=== PATIENT | male | born 1990 | race African-American/Black ===

== ENCOUNTER 2020-09-21 08:11 | Emergency (ER) | payer OTHER ==
[~2020-09-21] VITALS: Ht 172.7 cm; Wt 65.8 kg
[2020-09-21 09:18] LABS: HEMATOCRIT 45.4 % (42.0-52.0); HEMOGLOBIN 14.9 gm/dL (14.0-18.0); MCH 28.6 pg (26.0-34.0); MCHC 32.9 g/dL (28.0-37.0); MCV 86.9 fL (80.0-100.0); RBC 5.22 mil/uL (4.50-6.00); RDW-CV 13.4 % (10.5-14.5); WBC 7.6 thou/uL (4.0-11.0)
[2020-09-21 09:23] LABS: CREATININE 1.3 mg/dL (0.6-1.3)
[2020-09-21 09:26] LABS: ALCOHOL 175 mg/dL (<10); SALICYLATE < 2.8 mg/dL (2.8-20.0)
[2020-09-21 09:27] LABS: ACETAMINOPHEN < 2 ug/mL (10-30); ALBUMIN 3.8 g/dL (3.4-5.0); TOTAL BILIRUBIN 0.9 mg/dL (<0.1-1.0); TOTAL PROTEIN 7.4 g/dL (6.4-8.2)
[2020-09-21 09:34] LABS: URINE BILIRUBIN NEGATIVE (Negative); URINE BLOOD TRACE (Negative); URINE CLARITY CLEAR; URINE COLOR YELLOW; URINE GLUCOSE-RANDOM NEGATIVE (Negative); URINE KETONES 1+ (Negative); URINE LEUKOCYTES NEGATIVE (Negative); URINE NITRITE NEGATIVE (Negative); URINE PROTEIN NEGATIVE (Negative); URINE SPECIFIC GRAVITY >= 1.030 (1.005-1.030); URINE UROBILINOGEN 0.2 E.U./dl (0.2-1.0)
[2020-09-21 09:40] LABS: AMP/METHAMP Negative (Negative); BARBITURATES Negative (Negative); BENZODIAZEPINES Negative (Negative); COCAINE Negative (Negative); METHADONE Negative (Negative); OPIATES Negative (Negative); PCP Negative (Negative); THC POSITIVE (Negative)
[2020-09-21 11:47] VITALS: BP 113/73
== END 2020-09-21 11:47 | disposition home or self-care (01) ==
LOC: M.ERS 08:11
PROVIDERS: Personal Emergency Response Attendant
DX: F10.129 Alcohol abuse with intoxication, unspecified (principal); Y90.6 Blood alcohol level of 120-199 mg/100 ml; Z20.2 Contact with and (suspected) exposure to infections with a predominantly sexual mode of transmission